=== PATIENT | female | born 1930 | race Caucasian/White ===

== ENCOUNTER 2018-05-19 08:46 | Inpatient (IN) | payer OTHER, BC ==
[2018-05-19] MEDS ORDERED: ACETAMINOPHEN 1000 MG/100 ML VIAL (NON FORMULARY) IVPB ONE (09:37)
[2018-05-19] MEDS ORDERED: traMADol HCL 50 MG TABLET PO ONE (09:37)
--- NOTE | 2018-05-19 09:44 | PDOC ---
History of Present Illness - General Stated Complaint: LT LOWER BACK OPAIN Time Seen by Provider: 05/19/18 09:02 History Source: Patient, Family - History of Present Illness Timing/Duration: other Past History - Past Medical History Allergies/Adverse Reactions: Allergies Allergy/AdvReac Type Severity Reaction Status Date / Time codeine AdvReac Verified 05/19/18 09:51 Home Medications: Ambulatory Orders Aspirin [ASA -] 81 mg PO DAILY 11/13/14 Atenolol [Tenormin -] 50 mg PO DAILY 11/13/14 Cyclobenzaprine HCl [Flexeril] 5 mg PO TID PRN 11/13/14 Fenofibrate [Lofibra] 160 mg PO DAILY 11/13/14 Furosemide [Lasix -] 20 mg PO Q48H 11/13/14 Nifedipine [Procardia Xl] 60 mg PO DAILY 11/13/14 Pitavastatin Calcium [Livalo] 2 mg PO Q48H 11/13/14 Gabapentin [Neurontin -] 300 mg PO ASDIR 05/19/18 Levothyroxine Sodium [Levoxyl] 25 mcg PO DAILY 05/19/18 Naproxen [Naprosyn] 500 mg PO DAILY 05/19/18 Polyethylene Glycol 3350 [Miralax (For Daily Use) -] 17 gm PO DAILY 05/19/18 Sitagliptin Phos/Metformin HCl [Janumet 50-500 mg Tablet] 1 each PO DAILY HTN: Yes Hypercholesterolemia: Yes - Suicide/Smoking/Psychosocial Hx Smoking History: Never smoked Hx Alcohol Use: No Review of Systems - Review of Systems Constitutional: No: Chills, Fever Respiratory: No: Shortness of Breath Cardiac (ROS): No: Chest Pain ABD/GI: No: Constipated, Diarrhea, Nausea, Vomiting, Abdominal cramping : No: Burning, Dysuria, Hematuria Musculoskeletal: Yes: Back Pain Neurological: No: Numbness, Tingling, Weakness *Physical Exam - Physical Exam General Appearance: Yes: Appropriately Dressed. No: Apparent Distress HEENT: positive: Normal Voice Neck: positive: Supple Respiratory/Chest: positive: Lungs Clear, Normal Breath Sounds. negative: Respiratory Distress Cardiovascular: positive: Regular Rate, S1, S2 Gastrointestinal/Abdominal: positive: Soft. negative: Tender Musculoskeletal: negative: CVA Tenderness, Vertebral Tenderness Extremity: positive: Normal Inspection, Other (no joint swelling, FROMI to LLE, no deformity, +pain w/ weight bearing on the L) Integumentary: positive: Dry, Warm Neurologic: positive: Fully Oriented, Alert, Normal Mood/Affect, Motor Strength 5/5 ED Treatment Course - LABORATORY CBC & Chemistry Diagram: 05/19/18 10:05 05/19/18 10:05 - RADIOLOGY Radiology Studies Ordered: Category Date Time Status CHEST X-RAY PORTABLE* [RAD] Stat Radiology 05/19/18 09:03 Completed HIP & PELVIS-LEFT [RAD] Stat Radiology 05/19/18 09:38 Ordered SPINE-LUMBAR SACRAL [RAD] Stat Radiology 05/19/18 09:38 Ordered Medical Decision Making - Medical Decision Making 05/19/18 09:39 88-year-old female, history of hypertension, hyperlipidemia, diabetes, ambulates with walker at home, brought in by family for back pain. Patient states for the past several days, she has had left lower back pain radiating to groin mostly, intermittent and worse with weight-bearing. Family states patient has been able to ambulate w/ walker but more limited now. Patient reports that about 3 weeks ago, she did lose balance while getting out of chair and fell, striking left side. Was not having pain at the time and was able to ambulate afterwards. Patient seen by Dr. Sloan several days ago and started on naproxen and flexeril, which is not relieving pain per patient. Denies any abdominal pain otherwise, dysuria, change in bowel movements, lower extremity weakness, sensory changes, saddle anesthesia or bowel or bladder incontinence See exam L lower back pain s/p fall ~3 weeks ago Ambulating w/ walker at home but more limited On pain meds w/ no relief Has ortho appt tomorrow Stable and in NAD w/ exam only remarkable for pain w/ weight bearing -pain control -XR -labs/ua r/o other etiology -anticipate discharge 05/19/18 12:13 Patient reports feeling some improvement with meds and able to bear weight with her walker in ER. Labs only remarkable for mild bump in creatinine that was treated with gentle hydration. K within normal limits. Urine pending. 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 Dr. Galvan requesting non- contrast CT lumbar spine for better evaluation. 09/05/18 15:54 CT read as acute fracture to L1 with chronic fracture to T12. Will admit at this time and place consult to orthopedics. Dr Sloan aware *DC/Admit/Observation/Transfer Diagnosis at time of Disposition: Compression fracture of lumbar vertebra Low back pain Qualifiers: Chronicity: acute Back pain laterality: left Sciatica presence: without sciatica Qualified Code(s): M54.5 - Low back pain - Discharge Dispostion Condition at time of disposition: Fair Decision to Admit order: Yes - Referrals Referrals: Matthew Sloan MD [Primary Care Provider] - - Patient Instructions Printed Discharge Instructions: DI for Low Back Pain Additional Instructions: Your mother's x-ray reveals arthritis to the lumbar spine. There was no sign of infection based on blood work and urine. Please continue pain meds given to you by your PMD and follow-up with orthopedic as scheduled tomorrow for further evaluation and management - Post Discharge Activity
[2018-05-19] MEDS ORDERED: ACETAMINOPHEN INJECTION 100 ML IVPB ONE (10:10)
[2018-05-19] MEDS ORDERED: traMADol HCL 50 MG TABLET ONE (10:10)
[2018-05-19 10:16] LABS: BASO % 0.5 % (0-2.0); EOS % 0.8 % (0-4.5); HEMATOCRIT 32.8 % (32.4-45.2); LYMPH % 30.9 % (8-40); MCH 30.6 pg (25.7-33.7); MCHC 33.4 g/dl (32.0-36.0); MEAN CELL VOLUME 91.4 fl (80-96); MEAN PLT VOLUME 7.1 fl (7.5-11.1); NEUT % 62.8 % (42.8-82.8); PLATELET COUNT 478 K/MM3 (134-434); RBC 3.59 M/mm3 (3.60-5.2); RDW 15.6 % (11.6-15.6); WHITE BLOOD COUNT 6.6 K/mm3 (4.0-10.0)
[2018-05-19 10:40] LABS: ALBUMIN 3.7 g/dl (3.4-5.0); ANION GAP 7 MMOL/L (8-16); BLOOD UREA NITROGEN 27 mg/dL (7-18); CALCIUM 9.6 mg/dL (8.5-10.1); CHLORIDE 104 mmol/L (98-107); CO2 26 mmol/L (21-32); CREATININE 1.5 mg/dL (0.55-1.02); GLUCOSE,RANDOM 115 mg/dL (74-106); POTASSIUM 4.3 mmol/L (3.5-5.1); SGOT/AST 24 U/L (15-37); SGPT/ALT 18 U/L (12-78); SODIUM 137 mmol/L (136-145)
[2018-05-19 10:42] LABS: ALK PHOS 54 U/L (45-117); BILIRUBIN,TOTAL 0.4 mg/dL (0.2-1.0); TOT PROT 8.4 g/dl (6.4-8.2)
[2018-05-19] MEDS ORDERED: SODIUM CHLORIDE 500 ML IV STA (10:54)
--- NOTE | 2018-05-19 11:17 | PDOC ---
*Physical Exam - Vital Signs Last Vital Signs Temp Pulse Resp BP Pulse Ox 98.9 F 92 H 15 146/87 96 05/19/18 09:05 05/19/18 09:05 05/19/18 09:05 05/19/18 09:05 05/19/18 09:05 - Physical Exam Comments: 05/19/18 11:17 The patient was examined by [TOM Herbert] under my direct supervision. I personally evaluated the patient. I concur with the above findings and the plan of care. ED Treatment Course - LABORATORY CBC & Chemistry Diagram: 05/19/18 10:05 05/19/18 10:05 - ADDITIONAL ORDERS Additional order review: Laboratory Results 05/19/18 10:05 Sodium 137 Potassium 4.3 Chloride 104 Carbon Dioxide 26 Anion Gap 7 L BUN 27 H Creatinine 1.5 H Creat Clearance w eGFR 32.77 Random Glucose 115 H Calcium 9.6 Total Bilirubin 0.4 AST 24 ALT 18 Alkaline Phosphatase 54 Total Protein 8.4 H Albumin 3.7 05/19/18 10:05 RBC 3.59 L MCV 91.4 MCHC 33.4 RDW 15.6 MPV 7.1 L D Neutrophils % 62.8 Lymphocytes % 30.9 Monocytes % 5.0 Eosinophils % 0.8 D Basophils % 0.5 - Medications Given in the ED: ED Medications Discontinued Medications Generic Name Dose Route Start Last Admin Trade Name Guillaumeq PRN Reason Stop Dose Admin Acetaminophen 1,000 mg 05/19/18 09:37 05/19/18 10:10 Ofirmev Injection - IVPB 05/19/18 09:38 1,000 mg ONCE ONE Administration Tramadol HCl 50 mg 05/19/18 09:37 05/19/18 10:10 Ultram - PO 05/19/18 09:38 50 mg ONCE ONE Administration *DC/Admit/Observation/Transfer Diagnosis at time of Disposition: Low back pain, Compression fracture of lumbar vertebra - Discharge Dispostion Disposition: HOME Condition at time of disposition: Fair - Referrals - Patient Instructions - Post Discharge Activity
--- NOTE | 2018-05-19 11:58 | EKG ---
Test Reason : Blood Pressure : / mmHG Vent. Rate : 091 BPM Atrial Rate : 091 BPM P-R Int : 190 ms QRS Dur : 078 ms QT Int : 334 ms P-R-T Axes : 018 -22 028 degrees QTc Int : 410 ms NORMAL SINUS RHYTHM VOLTAGE CRITERIA FOR LEFT VENTRICULAR HYPERTROPHY ABNORMAL ECG WHEN COMPARED WITH ECG OF 13-NOV-2014 11:39, NO SIGNIFICANT CHANGE WAS FOUND Confirmed by JEFF SHORE, NAIMA ([id number]) on 05/19/2018 11:58:16 AM Referred By: Confirmed By:NAIMA AGUILAR MD
[2018-05-19 12:43] LABS: URINE APPEARANCE SLCLOUDY; URINE BILIRUBIN NEGATIVE (<2.0 mg/dL); URINE COLOR LTYELLOW; URINE GLUCOSE (UA) NEGATIVE (NEGATIVE); URINE KETONE TRACE (NEGATIVE); URINE NITRITE NEGATIVE (NEGATIVE); URINE UROBILINOGEN NEGATIVE mg/dL (0.2-1.0)
[2018-05-19 12:49] LABS: URINE LEUK ESTERASE 3+ (NEGATIVE); URINE PROTEIN 1+ (NEGATIVE)
[2018-05-19 12:58] LABS: EPI CELLS MODERATE /HPF (FEW)
[2018-05-19] MEDS ORDERED: ONDANSETRON 4 MG/2 ML VIAL IVPUSH ONE (14:57)
[2018-05-19] MEDS ORDERED: ONDANSETRON 4 MG/2 ML VIAL ONE (14:58)
[2018-05-19 18:06] VITALS: BMI 28.2
[2018-05-19] MEDS ORDERED: FUROSEMIDE 20 MG TABLET (FP) PO SCH (22:45)
[2018-05-19] MEDS: NIFEdipine E.R 60 MG TABLET (UD) PO SCH (23:07)
[2018-05-19] MEDS: GABAPENTIN 300 MG CAPSULE (FP) PO SCH (23:08)
[2018-05-19] MEDS: LEVOTHYROXINE NA 25 MCG TABLET (FP) PO SCH (23:08)
[2018-05-19] MEDS: POLYETHYLENE GLYCOL 3350 119 GM BTL PO SCH (23:08)
[2018-05-19] MEDS: ATENOLOL 50 MG TABLET (FP) PO SCH (23:08)
[2018-05-19] MEDS: CYCLOBENZAPRINE HCL 10 MG TABLET (FP) PO PRN (23:10)
[2018-05-19] MEDS: NAPROXEN 500 MG TABLET (FP) PO SCH (23:28)
[2018-05-20] MEDS: LEVOTHYROXINE NA 25 MCG TABLET (FP) PO SCH (06:42)
[2018-05-20] MEDS ORDERED: sitaGLIPtin PHOSPHATE 50 MG TABLET PO SCH ×2 (07:00)
[2018-05-20] MEDS ORDERED: metFORMIN HCL 500 MG TABLET (FP) PO SCH ×2 (07:00)
--- NOTE | 2018-05-20 09:23 | CON.ORTH ---
Consult Reason for Consultation:: LBP - Past Medical History Cardio/Vascular: Yes: HTN, Hyperlipdemia Gastrointestinal: Yes: GI Bleed ...: No - Alcohol/Substance Use Hx Alcohol Use: No - Smoking History Smoking history: Never smoked Have you smoked in the past 12 months: No Home Medications - Allergies Allergies/Adverse Reactions: Allergies Allergy/AdvReac Type Severity Reaction Status Date / Time codeine AdvReac Verified 05/19/18 09:51 - Home Medications Home Medications: Ambulatory Orders Aspirin [ASA -] 81 mg PO DAILY 11/13/14 Atenolol [Tenormin -] 50 mg PO DAILY 11/13/14 Cyclobenzaprine HCl [Flexeril] 5 mg PO TID PRN 11/13/14 Fenofibrate [Lofibra] 160 mg PO DAILY 11/13/14 Furosemide [Lasix -] 20 mg PO Q48H 11/13/14 Nifedipine [Procardia Xl] 60 mg PO DAILY 11/13/14 Pitavastatin Calcium [Livalo] 2 mg PO Q48H 11/13/14 Gabapentin [Neurontin -] 300 mg PO ASDIR 05/19/18 Levothyroxine Sodium [Levoxyl] 25 mcg PO DAILY 05/19/18 Naproxen [Naprosyn] 500 mg PO DAILY 05/19/18 Polyethylene Glycol 3350 [Miralax (For Daily Use) -] 17 gm PO DAILY 05/19/18 Sitagliptin Phos/Metformin HCl [Janumet 50-500 mg Tablet] 1 each PO DAILY Physical Exam for Ortho Vital Signs: Vital Signs Temperature 98.4 F 05/20/18 06:00 Pulse Rate 73 05/20/18 06:00 Respiratory Rate 20 05/20/18 06:00 Blood Pressure 124/67 05/20/18 06:00 O2 Sat by Pulse Oximetry (%) 95 05/19/18 21:00 Labs: CBC, BMP 05/19/18 10:05 05/19/18 10:05 - Lower Extremity Pelvis: Yes: Exam WNL Hip: Yes: Exam WNL Other Findings/Remarks: Ls-spine- + ttp over L1-2, - SLR, nvi Imaging - Results X-ray: Report Reviewed, Image Reviewed Cat Scan: Report Reviewed, Image Reviewed Assessment/Plan 88-year-old female, history of hypertension, hyperlipidemia, diabetes, ambulates with walker at home, brought in by family for back pain. Patient states for the past several days, she has had left lower back pain radiating to groin mostly, intermittent and worse with weight-bearing. Family states patient has been able to ambulate w/ walker but more limited now. Patient reports that about 3 weeks ago, she did lose balance while getting out of chair and fell, striking left side. Was not having pain at the time and was able to ambulate afterwards. Patient seen by Dr. lSoan several days ago and started on naproxen and flexeril, which is not relieving pain per patient. Denies any abdominal pain otherwise, dysuria, change in bowel movements, lower extremity weakness, sensory changes, saddle anesthesia or bowel or bladder incontinence a/p- L1 compression fx PT, wbat back brace pain control ok to d/c from ortho pov may need snf d/w Dr. Paige
[2018-05-20] MEDS ORDERED: PT OWN MED DRAWER 7, Y5N ONE (09:50)
[2018-05-20] MEDS: NIFEdipine E.R 60 MG TABLET (UD) PO SCH (09:53)
[2018-05-20] MEDS: POLYETHYLENE GLYCOL 3350 119 GM BTL PO SCH (09:53)
[2018-05-20] MEDS: NAPROXEN 500 MG TABLET (FP) PO SCH (09:53)
[2018-05-20] MEDS: ATENOLOL 50 MG TABLET (FP) PO SCH (09:53)
[2018-05-20] MEDS: GABAPENTIN 300 MG CAPSULE (FP) PO SCH (09:53)
--- NOTE | 2018-05-20 10:04 | PN ---
Progress Note (short form) - Note Progress Note: Pt seen as well. I agree with Shagufta SANTOS's note. Dx= acute L1 compression fracture, doing fine. I showed her lumbar extension exercises to do on her own. She can be DC'd from an ortho pov. F/u in my office in 7-10 days
[2018-05-20] MEDS: CYCLOBENZAPRINE HCL 10 MG TABLET (FP) PO PRN (17:36)
[2018-05-21] MEDS: LEVOTHYROXINE NA 25 MCG TABLET (FP) PO SCH (06:02)
[2018-05-21] MEDS: CYCLOBENZAPRINE HCL 10 MG TABLET (FP) PO PRN (07:46)
--- NOTE | 2018-05-21 09:11 | DS ---
Physical Examination Vital Signs: Vital Signs Temperature 98.2 F 05/21/18 05:51 Pulse Rate 66 05/21/18 05:51 Respiratory Rate 20 05/21/18 05:51 Blood Pressure 131/62 05/21/18 05:51 O2 Sat by Pulse Oximetry (%) 96 05/20/18 21:00 Findings/Remarks: Admitted with H/O fall ,back pain and fracture of L1 Evaluated by ortho advised PT as out patient Constitutional: Yes: No Distress Eyes: Yes: WNL HENT: Yes: WNL Neck: Yes: WNL Cardiovascular: Yes: WNL Respiratory: Yes: WNL Gastrointestinal: Yes: Normal Bowel Sounds ...Rectal Exam: Yes: Deferred Renal/: Yes: WNL Edema: No Neurological: Yes: Alert Labs: CBC, BMP 05/19/18 10:05 05/19/18 10:05 Discharge Summary Reason For Visit: COMPRESSION FRACTURE OF LUMBAR VERTEBRA Current Active Problems Compression fracture of lumbar vertebra (Acute) Low back pain (Acute) Condition: Fair - Instructions Diet, Activity, Other Instructions: Your mother's x-ray reveals arthritis to the lumbar spine. There was no sign of infection based on blood work and urine. Please continue pain meds given to you by your PMD and follow-up with orthopedic as scheduled tomorrow for further evaluation and management Referrals: Matthew Sloan MD [Primary Care Provider] - - Home Medications Comprehensive Discharge Medication List: Ambulatory Orders Aspirin [ASA -] 81 mg PO DAILY 11/13/14 Atenolol [Tenormin -] 50 mg PO DAILY 11/13/14 Cyclobenzaprine HCl [Flexeril] 5 mg PO TID PRN 11/13/14 Fenofibrate [Lofibra] 160 mg PO DAILY 11/13/14 Furosemide [Lasix -] 20 mg PO Q48H 11/13/14 Nifedipine [Procardia Xl] 60 mg PO DAILY 11/13/14 Pitavastatin Calcium [Livalo] 2 mg PO Q48H 11/13/14 Gabapentin [Neurontin -] 300 mg PO ASDIR 05/19/18 Levothyroxine Sodium [Levoxyl] 25 mcg PO DAILY 05/19/18 Naproxen [Naprosyn] 500 mg PO DAILY 05/19/18 Polyethylene Glycol 3350 [Miralax (For Daily Use) -] 17 gm PO DAILY 05/19/18 Sitagliptin Phos/Metformin HCl [Janumet 50-500 mg Tablet] 1 each PO DAILY
[2018-05-21] MEDS: ATENOLOL 50 MG TABLET (FP) PO SCH (09:37)
[2018-05-21] MEDS ORDERED: PT OWN MED DRAWER 7, Y5N ONE (09:37)
[2018-05-21] MEDS: GABAPENTIN 300 MG CAPSULE (FP) PO SCH (09:37)
[2018-05-21] MEDS: NAPROXEN 500 MG TABLET (FP) PO SCH (09:38)
[2018-05-21] MEDS: NIFEdipine E.R 60 MG TABLET (UD) PO SCH (09:38)
[2018-05-21] MEDS: POLYETHYLENE GLYCOL 3350 119 GM BTL PO SCH (09:43)
[2018-05-21 09:49] VITALS: BP 120/63; PULSE 71; TEMP 98.7
--- NOTE | 2018-05-21 12:02 | PN ---
Progress Note (short form) - Note Progress Note: Ortho Pt seen and examined s/p L1 compression fx PE- + ttp, decr rom, able to ambulate and stand on her own nvi a/p back brace applied PT, wbat pain control d/c planning d/w Dr. Manzanares
== END 2018-05-21 14:14 | disposition home or self-care (01) | DRG 544 ==
LOC: JER 08:46 → JERBED 15:55 → J6S 17:15
PROVIDERS: ADMIT Internal Medicine; ATTEND Internal Medicine
DX: M48.56XA Collapsed vertebra, not elsewhere classified, lumbar region, initial encounter for fracture (principal); M48.54XD Collapsed vertebra, not elsewhere classified, thoracic region, subsequent encounter for fracture with routine healing; I10 Essential (primary) hypertension; E78.5 Hyperlipidemia, unspecified; E11.9 Type 2 diabetes mellitus without complications; M46.86 Other specified inflammatory spondylopathies, lumbar region
CPT/HCPCS: 36415; 71045-TC-FY; 72100-TC-FY; 72131-TC; 73523-TC-FY; 80053; 81003; 81015; 82962; 85025; 87086; 87186; 93005; 93010; 97116-GP; 97161-GP; 97163-GP; 99283-25; J0131